=== PATIENT | female | born 1955 | race Caucasian/White ===

== ENCOUNTER → 2020-04-29 | Outpatient (CLI) | payer MEDICARE ==
--- NOTE | 2020-04-29 13:01 | RADIOLOGY REPORT (SQ) ---
EXAM DESCRIPTION: CHEST 2 VIEWS IMAGES COMPLETED DATE/TIME: 04/29/2020 9:57 am REASON FOR STUDY: R05 COUGH, R06.2 WHEEZING COMPARISON: None. EXAM PARAMETERS: NUMBER OF VIEWS: two views TECHNIQUE: Digital Frontal and Lateral radiographic views of the chest acquired. RADIATION DOSE: NA LIMITATIONS: none FINDINGS: LUNGS AND PLEURA: 8 mm nodule in the left base, possible granuloma. No acute infiltrate o r effusion. MEDIASTINUM AND HILAR STRUCTURES: No masses or contour abnormalities. HEART AND VASCULAR STRUCTURES: Heart normal size. No evidence for failure. BONES: No acute findings. HARDWARE: None in the chest. OTHER: No other significant finding. IMPRESSION: The study is essentially normal. There is an 8 mm nodule in the left base. COMMENT: [facility] CRITERIA FOR FOLLOW-UP OF PULMONARY NODULES Incidentally detected new nodules in persons 35 or older. HIGH RISK: History of smoking or other known risk factors. 6-8 mm single solid nodule: LOW RISK: CT 6-12 mo; then consider CT 18-24 mo. HIGH RISK: CT 6-12 mo; t hen CT 18-24 mo. TECHNICAL DOCUMENTATION: JOB ID: [id number] [facility]- All Rights Reserved Reading location - IP/workstation name: [email or web address]
== END ==
LOC: RAD 09:22
PROVIDERS: ATTEND Internal Medicine
DX: R05 Cough (principal); R06.2 Wheezing
CPT/HCPCS: 71046